=== PATIENT | female | born 1960 | race Caucasian/White ===

== ENCOUNTER → 2017-03-06 | Outpatient (CLI) | payer BC | END | disposition home or self-care (01) | LOC: KCIC MAMMO 16:36 | DX: Z12.31 Encounter for screening mammogram for malignant neoplasm of breast (principal) | CPT/HCPCS: 77067 ==

== ENCOUNTER → 2017-03-15 | Outpatient (CLI) | payer BC | END | disposition home or self-care (01) | LOC: KCIC MAMMO 08:40 | DX: N63.20 Unspecified lump in the left breast, unspecified quadrant (principal) | CPT/HCPCS: 76641; 77065 ==

== ENCOUNTER → 2017-08-11 | Outpatient (CLI) | payer BC | END | disposition home or self-care (01) | LOC: KCIC 14:27 | DX: R05 Cough (principal) | CPT/HCPCS: 71046 ==

== ENCOUNTER → 2017-09-21 | Outpatient (CLI) | payer BC | END | disposition home or self-care (01) | LOC: KCIC MAMMO 12:45 | DX: R92.8 Other abnormal and inconclusive findings on diagnostic imaging of breast (principal) | CPT/HCPCS: 76641; 77065 ==

== ENCOUNTER → 2018-04-11 | Outpatient (CLI) | payer BC ==
--- NOTE | 2018-04-11 15:34 | KCIC ---
Bilateral diagnostic digital mammograms: Reason for examination: Follow-up nodular density in the left breast. Comparison is made to previous mammographic exams dated back to 03/06/2017. Interpretation was made with the benefit of CAD. The skin and nipples show no abnormalities. No abnormal axillary lymph nodes are seen. The breast parenchyma shows scattered fibroglandular density. (Breast density: Category B.) There continues to be a small nodular density seen centrally in the left breast which is unchanged. There is suggestion of some increased nodularity however in the upper outer quadrant anteriorly in the right breast. Further evaluation with ultrasound will follow. There are no other new dominant masses, suspicious calcifications or architectural distortions. Impression: No definite change in the small nodule seen centrally in the left breast. Suggestion of some increased nodularity anteriorly in the upper outer quadrant of the right breast. Ultrasound to follow. BI-RADS Category 0: Incomplete. Needs additional imaging evaluation. Bilateral breast ultrasound: Comparison is made to previous study dated 09/21/2017 and 03/15/2017. Ultrasound examination was performed bilaterally in the areas of mammographic concern. In the right breast at the 11:00 position 4 cm from the nipple, there appears to be 3.7 mm hypoechoic circumscribed lesion consistent with focal fibrocystic change. No other cystic or solid lesions are seen. No abnormal appearing lymph nodes are seen in the right axilla. The left breast continues to show a small 2.8 mm cystic lesion at the 1:00 position 4.5 cm from the nipple. There is also a small 4.8 mm fibrocystic lesion at the 3:00 position 7 cm from the nipple. No suspicious lesions are seen. No abnormal appearing lymph nodes are seen in the axilla. IMPRESSION: Benign-appearing cystic and fibrocystic lesions with no suspicious lesion seen. Recommend routine mammographic follow-up. BI-RADS Category 2: Benign. "Our facility is accredited by the [employer] Mammography [employer]." This patient's information has been entered into a reminder system for the patient to be notified with the results of her examination and a target date for the next mammogram. Electronically signed by: Enedina Laurent MD (04/11/2018 3:31 PM) [id number]
== END | disposition home or self-care (01) ==
LOC: KCIC MAMMO 12:44
PROVIDERS: ATTEND Family Medicine
DX: N64.89 Other specified disorders of breast (principal)
CPT/HCPCS: 76641; 77066